=== PATIENT | male | born 1980 | race Caucasian/White ===

== ENCOUNTER 2018-11-08 09:42 | Emergency (ER) | payer BC ==
[2018-11-08] MEDS ORDERED: Adacel (T-DAP) 0.5 ML SYRINGE ONE (09:59)
[2018-11-08] MEDS ORDERED: Lidocaine 1% 20 ML MDV ONE (09:59)
[2018-11-08] MEDS ORDERED: Triple Antibiotic Oint 1 GM Packet ONE (10:25)
--- NOTE | 2018-11-08 10:36 | RAD ---
LEFT RING DIGIT RADIOGRAPHS THREE VIEWS: Date: 11-08-18 Provided Clinical History: Laceration. FINDINGS: There is no evidence for fracture or radiopaque foreign body. IMPRESSION: As above. POS: [facility]
== END 2018-11-08 10:44 | disposition home or self-care (01) ==
LOC: MADERS 09:42
DX: S61.213A Laceration without foreign body of left middle finger without damage to nail, initial encounter (principal); E03.9 Hypothyroidism, unspecified; Z79.899 Other long term (current) drug therapy; W26.8XXA Contact with other sharp object(s), not elsewhere classified, initial encounter
CPT/HCPCS: 12001; 90471; 90715; J2001